=== PATIENT | female | born 1960 | race Caucasian/White ===

== ENCOUNTER 2024-02-01 08:34 | Outpatient (OUT) | payer BC, SELFPAY ==
--- NOTE | 2024-02-01 08:46 | MM_ITS ---
Patient Name: ANGELIC TERRELL MR#: [id number] : 1960 Exam Date: 02/01/2024 Ordering Doctor: DR Fahad San . RADIOLOGY REPORT PROCEDURE: MM TOMOSYNTHESIS SCREENING BI COMPARISON: MG MAMM SCREEN 3D YASSINE CAD, 11/27/2021. MG MAMM SCREEN 3D YASSINE CAD, 10/24/2020. MG MAMM SCREEN 3D YASSINE CAD, 03/02/2019. MG MAMM SCREEN 3D YASSINE CAD, 03/01/2018. INDICATIONS: Screening Calculator Name NCI Breast Cancer Risk Assessment Tool 5 Year Breast Cancer Risk Not Reported. Lifetime Breast Cancer Risk Not Reported. Personal Breast Cancer No Personal Ovarian Cancer No Treatments None Family Cancers None LOCATION: [facility] BREAST COMPOSITION: There are scattered areas of fibroglandular density. FINDINGS: DIAGNOSTIC CATEGORY 2--BENIGN FINDING: RIGHT BREAST: No significant suspicious finding. Stable skin surface lesion/mole anterior upper-outer quadrant. No significant change has occurred. LEFT BREAST: No significant suspicious finding. No significant change has occurred. RECOMMENDATIONS: ROUTINE MAMMOGRAM AND CLINICAL EVALUATION IN 12 MONTHS. PLEASE NOTE: A NORMAL MAMMOGRAM DOES NOT EXCLUDE THE POSSIBILITY OF BREAST CANCER. A CLINICALLY SUSPICIOUS PALPABLE LUMP SHOULD BE BIOPSIED. Dictated by: Regulo Sales M.D. on 02/02/2024 at 15:01 Approved by: Regulo Sales M.D. on 02/02/2024 at 15:09
[2024-02-01 09:16] LABS: Basophils Percent Auto 0.4 % (0.2-2.0); Eosinophils Absolute Auto 0.1 10^3/uL (0.0-0.7); Eosinophils Percent Auto 2.4 % (0.9-7.0); Hematocrit 40.1 % (36.0-48.0); Hemoglobin 13.2 g/dL (12.0-16.0); Immature Granulocytes Abs Auto 0.01 10^3/uL (0.00-0.03); Immature Granulocytes Pct Auto 0.2 % (0.0-0.5); Lymphocytes Absolute Auto 1.7 10^3/uL (1.2-3.8); Lymphocytes Percent Auto 33.3 % (20.5-60.0); Mean Corpuscular HGB Conc 32.9 g/dL (29.9-35.2); Mean Corpuscular Hemoglobin 31.2 pg (26.7-34.0); Mean Corpuscular Volume 94.8 fL (81.0-99.0); Mean Platelet Volume 8.8 fL (9.5-13.5); Monocytes Absolute Auto 0.4 10^3/uL (0.3-0.8); Monocytes Percent Auto 8.5 % (1.7-12.0); Neutrophils Absolute Auto 2.7 10^3/uL (1.4-6.5); Neutrophils Percent Auto 55.2 % (43.0-75.0); Platelet Count 271 10^3/uL (150-450); Red Blood Count 4.23 10^6/uL (4.20-5.40); Red Cell Distribution Width 12.9 % (11.0-15.0)
[2024-02-01 09:36] LABS: Estimated Average Glucose 120 mg/dL; Glycohemoglobin A1C 5.8 % (4.5-6.2)
[2024-02-01 10:10] LABS: Alanine Aminotransferase 42 U/L (14-59); Albumin Globulin Ratio 0.9; Albumin Level 3.8 g/dL (3.4-5.0); Alkaline Phosphatase 81 U/L (46-116); Anion Gap 7.2; Aspartate Amino Transferase 21 U/L (15-37); BUN Creatinine Ratio 31.5; Bilirubin Direct 0.1 mg/dL (0.0-0.2); Bilirubin Total 0.5 mg/dL (0.2-1.0); Calcium 8.9 mg/dL (8.5-10.1); Carbon Dioxide 30.2 mmol/L (21.0-32.0); Chloride 102 mmol/L (98-107); Chol HDL Ratio 2.8; Cholesterol 208 mg/dL (<=200); Estimated GFR (African America >60 (>=60); Estimated GFR (Non-African Ame >60 (>=60); Globulin 4.2 g/dL; Glucose 121 mg/dL (74-106); HDL Cholesterol 75 mg/dL (40-60); Potassium 4.4 mmol/L (3.5-5.1); Sodium 135 mmol/L (136-145); Thyroid Stimulating Hormone 2.281 uIU/mL (0.358-3.740); Triglycerides 68 mg/dL (<=150); VLDL CHOLESTEROL 13.6 mg/dL
== END 2024-02-01 08:35 | disposition home or self-care (01) ==
PROVIDERS: PCP Family Medicine; Visit Provider Family Medicine
DX: Z00.00 Encounter for general adult medical examination without abnormal findings (principal); Z12.31 Encounter for screening mammogram for malignant neoplasm of breast
CPT/HCPCS: 36415; 77063; 77067; 80048; 80061; 80076; 82306; 83036; 84443; 85025

== ENCOUNTER 2025-02-28 13:10 | Outpatient (OUT) | payer BC, SELFPAY ==
--- OUTSIDE RECORDS SUMMARY | 2025-02-28 13:13 | XMS_ITS | Clinical Summary ---
Author Organization [facility] Healthcare Address [address] [place] [address] Care Team Providers Care [employer] Seal Name Role Phone Fahad San MD Primary Care Provider [phone] Allergies No known active allergies Medications MedicationSigDispense QuantityRefillsLast FilledStart DateEnd DateStatus atenolol (Tenormin) 50 MG tablet Indications:Essential hypertension, benignTake 1 tablet (50 mg) by mouth Daily 90 tablet 312415Active meloxicam (Mobic) 15 MG tablet Indications:Chronic neck painTake 1 tablet (15 mg) by mouth Daily 30 tablet 5045Active cholecalciferol (Vitamin D-3) 50 MCG (2000 UT) tablet Indications:Vitamin D deficiencyTake 1 tablet (50 mcg) by mouth Daily 30 tablet 5Active dilTIAZem CD (Cardizem CD) 180 MG 24 hr capsule Indications:Essential hypertension, benignTake 1 capsule (180 mg) by mouth Daily 90 capsule 3065Active cetirizine (ZyrTEC) 10 MG tablet Take 10 mg by mouth DailyActive pantoprazole (Protonix) 40 MG EC tablet Indications:GERD without esophagitisTake 1 tablet (40 mg) by mouth in the morning. Take before meals. Do not crush, chew, or split. 30 tablet 505Active Active Problems ProblemNoted DateDiagnosed DateClass 2 severe obesity due to excess calories with serious comorbidity and body mass index (BMI) of36.0 to 36.9 in adult 05/16/2024 Assessment & Plan (05/16/2024 9:49 AM EST): Weight down 9 pounds in past year. GERD without chfywdgfzjy50/07/2025 Assessment & Plan (11/14/2024 3:31 PM EDT): Symptoms worse and try protonix. Assessment & Plan (05/16/2024 9:49 AM EST): Symptoms tolerable with nexium and continue. If worsens will need EGD and or UGI. Lwyziefypen97/24/2024Essential hypertension, ktzdsx0810/19/2023 Assessment & Plan (11/14/2024 3:31 PM EDT): BP controlled and monitor PRN. Assessment & Plan (05/16/2024 9:49 AM EST): BP okay and monitor PRN. Assessment & Plan (10/19/2023 3:14 PM EDT): BP okay today and monitor PRN. Chronic neck pain10/19/20232821Dkjnnrczleci22/11/2024rimary osteoarthritis of both hands10/19/2023 Assessment & Plan (11/14/2024 3:31 PM EDT): Pain and stiffness stable and continue mobic. Assessment & Plan (10/19/2023 3:14 PM EDT): Pain and stiffness stable and continue mobic. Allergic rhinitis due to jezpoi0010/19/2023 Assessment & Plan (11/14/2024 3:31 PM EDT): Symptoms controlled with medication and continue. Assessment & Plan (10/19/2023 3:13 PM EDT): Symptoms controlled with medication and continue. Vitamin D ypqvzhcevw47/11/2024nnual physical exam10/19/2023 Assessment & Plan (05/16/2024 9:48 AM EST): Reviewed labs. Due for cologuard and ordered. Discussed proper diet and regular aerobic exercise. Need aerobic exercise 5-6 days a week for 30 minutes at a time. Smaller portions and limit total calories. Tetanus every 10 years. Advised not to smoke. Resolved Problems ProblemNoted DateDiagnosed DateResolved DateChronic kidney disease, stage III (moderate) Social History Tobacco UseTypesPacks/DayYears UsedDateSmoking Tobacco: NeverSmokeless Tobacco: Never Tobacco Cessation:Counseling Given: Not Answered Social Connection and Isolation PanelAnswerDate RecordedIn a typical week, how many times do you talk on the phone with family, friends, or neighbors?Three times a week10/12/2023How often do you get together with friends or relatives? Three times a week10/12/2023How often do you attend scientology or yarsani services?Patient ohfnqhxn44/04/2024o you belong to any clubs or organizations such as scientology groups, unions, fraternal or athletic groups, or school groups? Yes10/12/2023How often do you attend meetings of the clubs or organizations you belong to?More than 4 times per year10/12/2023re you , , , , never , or living with a partner?Miekvkv5610/12/2023 AUDIT-CAnswerDate RecordedQ1: How often do you have a drink containing alcohol? Patient qopgttye91/04/2024Q2: How many drinks containing alcohol do you have on a typical day when you are drinking?Patient frqbzrxo33/04/2024Frequency of Binge DrinkingNot on file10/12/2023Overall Financial Resource Strain (CARDIA)Answer Date RecordedHow hard is it for you to pay for the very basics like food, housing, medical care, and heating?Patient ibcwspvq08/04/2024[facility] [place] [facility] - Occupational Stress QuestionnaireAnswerDate RecordedDo you feel stress - tense, restless, nervous, or anxious, or unable to sleep at night because yourmind is troubled all the time - these days?Not at all 10/12/2023Exercise Vital SignAnswerDate RecordedOn average, how many days per week do you engage in moderate to strenuous exercise (like a brisk walk)?3 days 10/12/2023On average, how many minutes do you engage in exercise at this level? 30 min10/12/2023Hunger Vital SignAnswerDate RecordedWithin the past 12 months, you worried that your food would run out before you got the money to buymore. Patient xekkrfkw08/04/2024Within the past 12 months, the food you bought just didn't last and you didn't have money to get more.Patient bolnekhk80/04/2024 PRAPARE - TransportationAnswerDate RecordedIn the past 12 months, has lack of transportation kept you from medical appointments or from getting medications? Patient nezdtrab10/04/2024In the past 12 months, has lack of transportation kept you from meetings, work, or from getting things needed for daily living?Patient /04/2024Housing Stability Vital SignAnswerDate RecordedIn the last 12 months, was there a time when you were not able to pay the mortgage or rent on time?Patient lrzsspki36/04/2024Number of Times Moved in the Last YearNot on file 10/12/2023Homeless in the Last YearNot on file10/12/2023CommentsUnknown Sex and Gender InformationValueDate RecordedSex Assigned at BirthNot on file Legal FucRlmvgo25/20/2023 4:59 PM ESTGender IdentityNot on fileSexual OrientationNot on file Last Filed Vital Signs Vital SignReadingTime TakenCommentsBlood Skhpfthy369/8411/14/2024 2:57 PM EDT Rvnux818411/14/2024 2:57 PM YCTCqwtezcnlvy59.2 ??C (97.1 ??F)11/14/2024 2:57 PM EDTRespiratory Lfdu014211/14/2024 2:57 PM EDTOxygen Lbklddjcjy27%11/14/2024 2:57 PM EDTInhaled Oxygen Concentration--Blkgpr21.7 kg (211 lb)11/14/2024 2:57 PM EDT Ycraii336 cm (5' 3 )11/14/2024 2:57 PM EDTBody Mass Index37.38011/14/2024 2:57 PM EDT Plan of Treatment Health MaintenanceDue DateLast DoneCommentsCT Flunqsdplyet81/12/1961olonoscopy 1960FIT1960FOBT1960 6234Tbzmxcmafwkcm39/12/1961Pap Smear1981 Cervical Cancer Yvfktrlle11/12/1991HPV/Yltpvb5007/19/1990Influenza Vaccine (#1) 01/08/20258590Jjjuoghfl80/25/443092/, 03/02/2019, 03/01/2018, Additional history existsColorectal Cancer Imeespmwh99/04/2028FIT-DNA8006/13/2024, 05/06/2021 Procedures Procedure NamePriorityDate/TimeAssociated DiagnosisCommentsLAB COLOGUARD?? COLON CANCER KQLYJDQdfvvxl74/04/2025 9:12 AM EST Colon cancer screening MM TOMOSYNTHESIS SCREENING BI02/02/2024 3:10 PM EDT from Last 3 Months or Most Recently Relevant to Health Maintenance Results * Cologuard?? colon cancer screening (06/13/2024 9:12 AM EST)ComponentValueRef RangeTest MethodAnalysis TimePerformed AtPathologist SignatureNONINV COLON CA DNA+OCC BLD SCRN STL-THFVqlbexhtMbxjkjls76/12/2025 1:20 AM [employer] (CLIA #:[id number])Comment: NEGATIVE TEST RESULT. A negative Cologuard result indicates a low likelihood that a colorectal cancer (CRC) or advanced adenoma (adenomatous polyps with more advanced pre-malignant features) ??is present. The chance that a person with a negative Cologuard test has a colorectal cancer is less than 1in 1500 (negative predictive value >99.9%) or has an advanced adenoma is less than 5.3% (negative predictive value 94.7%). These data are based on a prospective cross-sectional study of 10,000individuals at average risk for colorectal cancer who were screened with both Cologuard and colonoscopy. (Bella Hobson al, N Engl J Med 2014;370(14):9106-9006) The normal value (reference range) for this assay is negative. COLOGUARD RE-SCREENING RECOMMENDATION: Periodic colorectal cancer screening is an important part ofpreventive healthcare for asymptomatic individuals at average risk for colorectal cancer. ??Following a negative Cologuard result, the [place] Cancer Society and U.S. Multi-Society Task Force screening guidelines recommend a Cologuard re-screening interval of 3 years. References: [place] [employer] Guideline for Colorectal Cancer Screening: https://www.cancer.or g/cancer/qptao-cxlqdx-qybhzw/avcbtxkgk-duhbatiug-miwcdwj/acs-recommendations.htm emilio.; Soto TEMPLE, Reji BORRERO, Albino MCDONALD, Colorectal Cancer Screening: Recommendations for Physicians and Patients from the U.S. Multi-Society Task Force on Colorectal Cancer Screening , Am J Gastroenterology 2017; 112:4142-7303. TEST DESCRIPTION: Composite algorithmic analysis of stool DNA-biomarkers with hemoglobin immunoassay. ?? Quantitative values of individual biomarkers are not reportable and are not associated with individual biomarker result reference ranges. Cologuard is intended for colorectal cancer screening ofadults of either sex, 45 years or older, who are at average-risk for colorectal cancer (CRC). Cologuard has been approved for use by the U.S. FDA. The performance of Cologuard was established in a cross sectional study of average-risk adults aged 50-84. Cologuard performance in patients ages 45 to 49 years was estimated by sub-group analysis of near-age groups. Colonoscopies performed for a positive result may find as the most clinically significant lesion: colorectal cancer [4.0%], advanced adenoma (including sessile serrated polyps greater than or equal to 1cm diameter) [20%] or non- advanced adenoma [31%]; or no colorectal neoplasia [45%]. These estimates are derived from a prospective cross-sectional screening study of 10,000 individuals at average risk for colorectal cancer who were screened with both Cologuard and colonoscopy. (Bella Hobson al, N Engl J Med 2014;370(14):7870-5845.) Cologuard may produce a false negative or false positive result (no colorectal cancer or precancerous polyp present at colonoscopy follow up). A negative Cologuard test result does not guarantee the absence of CRC or advanced adenoma (pre-cancer). The current Cologuard screening interval is every 3 years. ([place] [employer] Society and U.S. Multi-Society Task Force). Cologuard performance data in a 10,000 patient pivotal study using colonoscopy as the reference method can be accessed at the following location: www.Dime.LiquidPlanner/results. Additional description of the Cologuard test process, warnings and precautions can be found at www.colPicatchard.com. Specimen (Source)Anatomical Location / LateralityCollection Method / Volume Collection TimeReceived TimeStool specimen (specimen)06/13/2024 9:12 AM EST 06/14/2024 2:15 PM EST Narrative Authorizing ProviderResult TypeResult StatusMarc Mena [facility] ORDERABLESFinal ResultPerforming OrganizationAddressCity/State/ZIP CodePhone Number [employer] (CLIA #:[id number]) [place] [address], * MM TOMOSYNTHESIS SCREENING BI (02/02/2024 3:10 PM EDT)Anatomical Region LateralityModalityOtherSpecimen (Source)Anatomical Location / Laterality Collection Method / VolumeCollection TimeReceived Time02/02/2024 3:10 PM EDT Narrative 02/02/2024 3:10 PM EDT [facility] ?[address] ? [place] [address] ? Mammography Report ? Signed ? Patient: XANDER,LYRIC ? MR#: [id number] ?? : 1960 ?Acct:[id number] ?? Age/Sex: 63 / F ?ADM Date: 02/01/24 ?? Loc: MAMMO ? Attending Dr: Fahad San M.D. ? Ordering Physician: Fahad San M.D. ?Results: ? Date of Service: 02/01/24 ?Follow Up: ? Procedure(s): MM tomosynthesis screening BI ?? Accession Number(s): [id number] ? cc: Fahad San M.D. ? Patient Name: ? LYRIC TERRELL ? MR#: [id number] ? : 1960 ? Exam Date: 02/01/2024 ?? Ordering Doctor: DR Fahad San . ? RADIOLOGY REPORT ? PROCEDURE: ? MM TOMOSYNTHESIS SCREENING BI ? COMPARISON: ? MG MAMM SCREEN 3D YASSINE CAD, 11/27/2021. ??MG MAMM SCREEN 3D YASSINE ?? CAD, 10/24/2020. ??MG MAMM SCREEN 3D YASSINE CAD, 03/02/2019. ??MG MAMM SCREEN 3D YASSINE ?? CAD, 03/01/2018. ? INDICATIONS: ? Screening ? Calculator Name ? NCI Breast Cancer Risk Assessment Tool ?? 5 Year Breast Cancer Risk ? Not Reported. ?? Lifetime Breast Cancer Risk ? Not Reported. ?? Personal Breast Cancer ?No ?? Personal Ovarian Cancer ? No ?? Treatments ? None ?? Family Cancers ? None ? LOCATION: ? [facility] ? BREAST COMPOSITION: ? There are scattered areas of fibroglandular density. ? FINDINGS: ? DIAGNOSTIC CATEGORY 2--BENIGN FINDING: ? RIGHT BREAST: ??No significant suspicious finding. ??Stable skin surface ?? lesion/mole anterior upper-outer quadrant. ??No significant change has ?? occurred. ? LEFT BREAST: ??No significant suspicious finding. ??No significant change has ?? occurred. ? RECOMMENDATIONS: ? ROUTINE MAMMOGRAM AND CLINICAL EVALUATION IN 12 MONTHS. ? PLEASE NOTE: ??A NORMAL MAMMOGRAM DOES NOT EXCLUDE THE POSSIBILITY OF BREAST ?? CANCER. ??A CLINICALLY SUSPICIOUS PALPABLE LUMP SHOULD BE BIOPSIED. ? Dictated by: Regulo Sales M.D. on 02/02/2024 at 15:01 ? Approved by: Regulo Sales M.D. on 02/02/2024 at 15:09 ? Dictated By: ?Regulo Sales M.D. ? Signed By: ?02/02/241509 ? DD/ 09 ? TD/TT: ? International Marketing Specialist: Procedure Note Radiology, Radiologist, MD - 02/02/2024 [facility] [place] [id number] Mammography Report Signed Patient: LYRIC TERRELLMR#: [id number] : 1960cct:[id number] Age/Sex: 63 / FADM Date: 02/01/24 Loc: MAMMO Attending Dr: Fahad San M.D. Ordering Physician: Fahad San M.D.Results: Date of Service: 02/01/24Follow Up: Procedure(s): MM tomosynthesis screening BI Accession Number(s): [id number] cc: Fahad San M.D. Patient Name: LYRIC TERRELL MR#: [id number] : 1960 Exam Date: 02/01/2024 Ordering Doctor: DR Fahad San . RADIOLOGY REPORT PROCEDURE: MM TOMOSYNTHESIS SCREENING BI COMPARISON: MG MAMM SCREEN 3D YASSINE CAD, 11/27/2021. MG MAMM SCREEN 3DBIL CAD, 10/24/2020. MG MAMM SCREEN 3D YASSINE CAD, 03/02/2019. MG MAMM SCREEN 3DBIL CAD, 03/01/2018. INDICATIONS: Screening Calculator Name NCI Breast Cancer Risk Assessment Tool 5 Year Breast Cancer Risk Not Reported. Lifetime Breast Cancer Risk Not Reported. Personal Breast Cancer No Personal Ovarian Cancer No Treatments None Family Cancers None LOCATION: [facility] BREAST COMPOSITION: There are scattered areas of fibroglandulardensity. FINDINGS: DIAGNOSTIC CATEGORY 2--BENIGN FINDING: RIGHT BREAST: No significant suspicious finding. Stable skin surface lesion/mole anterior upper-outer quadrant. No significant change has occurred. LEFT BREAST: No significant suspicious finding. No significant changehas occurred. RECOMMENDATIONS: ROUTINE MAMMOGRAM AND CLINICAL EVALUATION IN 12 MONTHS. PLEASE NOTE: A NORMAL MAMMOGRAM DOES NOT EXCLUDE THE POSSIBILITY OFBREAST CANCER. A CLINICALLY SUSPICIOUS PALPABLE LUMP SHOULD BE BIOPSIED. Dictated by: Regulo Sales M.D. on 02/02/2024 at 15:01 Approved by: Regulo Sales M.D. on 02/02/2024 at 15:09 Dictated By: Regulo Sales M.D. Signed By:02/02/240 DD/ 09 TD/TT: International Marketing Specialist: Authorizing ProviderResult TypeResult StatusMarc Naderer MDCLINISYNC IMAGING Final Result from Last 3 Months or Most Recently Relevant to Health Maintenance Insurance Care Teams Team MemberRelationshipSpecialtyStart DateEnd Date Fahad San MD PCP - GeneralFamily Medicine10/19/23
--- OUTSIDE RECORDS SUMMARY | 2025-02-28 13:13 | XMS_ITS | Clinical Summary ---
Author Organization [facility] tem Address [id number] [address] [place] [address] Care Team Providers Care Hot Man Name Role Phone Fahad San MD Primary Care Provider [phone] Family History Medical HistoryRelationNameCommentsBreast cancerCousinRelationNameStatusComments Cousin Social History Tobacco UseTypesPacks/DayYears UsedDateSmoking Tobacco: Never AssessedChildcare AnswerDate WgpqstbrThwvjrakeJuagtfc16/12/2019EmploymentAnswerDate Recorded VfytocwjzbOiafutz67/12/2019Purpose - LifeAnswerDate RecordedPurpose and direction in tgebFpauicg80/11/2021CommentsNoSex and Gender Information ValueDate RecordedSex Assigned at BirthNot on fileLegal RdbWkutmn85/06/2015 11:30 AM EDTGender IdentityNot on fileSexual OrientationNot on file Last Filed Vital Signs Vital SignReadingTime TakenCommentsBlood Pressure--Pulse--Temperature-- Respiratory Rate--Oxygen Saturation--Inhaled Oxygen Concentration--Bmglmv44.5 kg (215 lb)03/02/2019 8:08 AM YIXLnwqmc468.6 cm (5' 4 )03/02/2019 8:08 AM EDTBody Mass Index36.91 8:08 AM EDT Plan of Treatment Health MaintenanceDue DateLast DoneCommentsDepression Hqsvhdwin89/12/1973Tobacco Pnmunesiz02/12/1973Adult BMI Htjschxvj52/12/1979DTaP,Tdap and Td Vaccines (1 - Tdap)07/20/1979Pap Smear1981Zoster (Shingles) Vaccine (1 of 2)2010 Influenza Surpvaq0301/08/2025 Medical Devices Not on file Insurance Care Teams Team MemberRelationshipSpecialtyStart DateEnd Date Fahad San MD PCP - GeneralFamily Cldwyvwm23/24/19
--- NOTE | 2025-02-28 13:18 | MM_ITS ---
Patient Name: ANGELIC TERRELL MR#: [id number] : 1960 Exam Date: 02/28/2025 Ordering Doctor: DR SAÚL FRANCO D.O. RADIOLOGY REPORT PROCEDURE: MM TOMOSYNTHESIS SCREENING BI COMPARISON: MM TOMOSYNTHESIS SCREENING BI, 02/01/2024. MG MAMM SCREEN 3D YASSINE CAD, 11/27/2021. MG MAMM SCREEN 3D YASSINE CAD, 10/24/2020. MG MAMM SCREEN 3D YASSINE CAD, 03/01/2018. INDICATIONS: Screening Calculator Name NCI Breast Cancer Risk Assessment Tool 5 Year Breast Cancer Risk Not Reported. Lifetime Breast Cancer Risk Not Reported. Personal Breast Cancer No Personal Ovarian Cancer No Treatments None Family Cancers None LOCATION: [facility] BREAST COMPOSITION: There are scattered areas of fibroglandular density. FINDINGS: RIGHT BREAST: No significant suspicious finding. Similar focal asymmetries are present. Benign-appearing lymph nodes are noted along the chest wall. LEFT BREAST: No significant suspicious finding. Similar focal asymmetries are present. Benign-appearing lymph nodes are noted along the chest wall. DIAGNOSTIC CATEGORY 2--BENIGN FINDING. NO CHANGE FROM COMPARISON. RECOMMENDATIONS: ROUTINE MAMMOGRAM AND CLINICAL EVALUATION IN 12 MONTHS. Dictated by: Joel Santillan MD on 02/28/2025 at 16:02 Approved by: Joel Santillan MD on 02/28/2025 at 16:11
--- OUTSIDE RECORDS SUMMARY | 2025-02-28 13:31 | XMS_ITS | CCD ---
Author Organization [facility] Care Team Providers Care Wildlife Biostation Research Ecologist Name Role Phone DR FAHAD OLIVIER Primary Care Unavailable SOY, DR FAHAD Cooper Consulting Unavailable SOY, DR FAHAD Cooper Attending Unavailable SOY, DR FAHAD Cooper Admitting Unavailable SOY, DR FAHAD Cooper Primary Care Unavailable ESPANOLA, DR MENDOZA Otero Consulting Unavailable SOY, DR FAHAD Cooper Attending Unavailable SOY, DR FAHAD Cooper Admitting Unavailable SOY, DR FAHAD Cooper Consulting Unavailable Fahad Olivier MD Primary Care Provider Fahad Olivier MD Unavailable FAHAD OLIVIER Attending Unavailable SOY, FAHAD Attending Unavailable Medications Current Medications MedicationDrug Class(es)DatesSig (Normalized)Sig (Original)atenolol 50 mg oral tablet (9 sources)beta-Adrenergic BlockerStart: 04-19-2024 End: 17-34-0566afzi 1 tablet by mouth once dailyatenolol (Tenormin) 50 MG tablet Indications: Essential hypertension, benign Take 1 tablet (50 mg) by mouth Daily 90 tablet 3 04/19/2024 04/19/2025 ActiveStart: 33-43-2664hewsstel (Tenormin) 50 MG tablet 10/17/2023 Activecetirizine hydrochloride 10 mg oral tablet (2 sources)Histamine-1 Receptor Antagonisttake 1 tablet by mouth once daily cetirizine (ZyrTEC) 10 MG tablet Take 10 mg by mouth Daily Activecholecalciferol 0.05 mg oral tablet (9 sources)Vitamin DStart: 16-82-5992gtsa 1 tablet by mouth once daily cholecalciferol (Vitamin D-3) 50 MCG (1999 UT) tablet Indications: Vitamin D deficiency Take 1 tablet (50 mcg) by mouth Daily 30 tablet 5 10/05/2024 Active Start: 79-52-3948zxsb 1 tablet by mouth once dailycholecalciferol (Vitamin D-3) 50 MCG (1999) tablet Indications: Vitamin D deficiency Take 1 tablet (50 mcg) by mouth Daily 30 tablet 5 03/06/2024 ActiveStart: 20-62-4804olvc 1 tablet by mouth once dailycholecalciferol (Vitamin D-3) 50 MCG (1999 UT) tablet Indications: Vitamin D deficiency Take 1 tablet (50 mcg) by mouth Daily 30 tablet 5 08/25/2023 Olorbg25 hr dilTIAZem hydrochloride 180 mg extended release oral capsule (10 sources)Calcium Channel BlockerStart: 10-23-2024 End: 69-26-7271wozq 1 capsule by mouth once dailydilTIAZem CD (Cardizem CD) 180 MG 24 hr capsule Indications: Essential hypertension, benign Take 1 capsule (180 mg) by mouth Daily 90 capsule 3 10/31/2024 ActiveStart: 10-19-2023 End: 56-50-4080ngvq 1 capsule by mouth once dailydilTIAZem CD (Cardizem CD) 180 MG 24 hr capsule Indications: Essential hypertension, benign (CMS/HCC) Take 1 capsule (180 mg) by mouth Daily 30 capsule 11 10/19/2023 10/18/2024 Active meloxicam 15 mg oral tablet (10 sources)Nonsteroidal Anti-inflammatory DrugStart: 04-03-2024 End: 00-37-9627kvur 1 tablet by mouth once dailymeloxicam (Mobic) 15 MG tablet Indications: Chronic neck pain Take 1 tablet (15 mg) by mouth Daily 30 tablet 5 08/28/2024 ActiveStart: 59-89-2952wczjtoarz (Mobic) 15 MG tablet 09/26/2023 Activepantoprazole 40 mg delayed release oral tablet (2 sources)Proton Pump InhibitorStart: 53-47-4543xnxm 1 tablet by mouth before mealtimepantoprazole (Protonix) 40 MG EC tablet Indications: GERD without esophagitis Take 1 tablet (40 mg)by mouth in the morning. Take before meals. Do not crush, chew, or split. 30 tablet 5 11/14/2024 Active Completed/Discontinued Medications MedicationDrug Class(es)DatesSig (Normalized)Sig (Original)esomeprazole 20 mg delayed release oral capsule (7 sources)Proton Pump Inhibitor End: 79-60-3574wgit 1 capsule by mouth before mealtimeesomeprazole (NexIUM) [address] capsule Take 20 mg by mouth in the morning. Take before meals. Do not open capsule.. 11/14/2024 Discontinuedloratadine 10 mg oral tablet (9 sources) End: 29-23-0044pzbd 1 tablet by mouth once dailyloratadine (Claritin) 10 MG tablet Take 10 mg by mouth Daily 11/14/2024 Discontinued Problems Active Problems Problem ClassificationProblemDateDocumented DateEpisodic/ChronicChronic kidney disease (9 sources)Chronic kidney disease stage 3; Translations: [Chronic kidney disease, stage III (moderate) ([facility])]Onset: 10-19-2023 Resolved: 303548-89-8772XsydwquZamxhpppj of lipid metabolism (9 sources)Dyslipidemia; Translations: [Hyperlipidemia, unspecified]Onset: 129071-46-9644HbxjnvxYvfkucatqd disorders (11 sources)Gastroesophageal reflux disease without esophagitis; Translations: [Gastro-esophageal reflux disease without esophagitis]Onset: 05-16-2024 67-43-4286FqiuzzeFbbwxnubm hypertension (14 sources)Benign essential hypertension; Translations: [Essential (primary) hypertension]Onset: 235473-07-9177TfpxfbkKxgjutzqujp deficiencies (10 sources)Vitamin D deficiency, unspecified; Translations: [Vitamin D deficiency]Onset: 896268-51-7133EoggertMeozmkyhppemwq (11 sources)Osteoarthritis of joint of bilateral hands; Translations: [Primary osteoarthritis, right hand]Onset: 587917-22-0430EraldwbTwyow nutritional; endocrine; and metabolic disorders (9 sources)Severe obesity; Translations: [Class 2 severe obesity due to excess calories with serious comorbidity and body mass index (BMI) of 36.0 to 36.9 in adult ([facility])]Onset: 301365-62-9507OlyjuzyIlziz screening for suspected conditions (not mental disorders or infectious disease) (6 sources)Encounter for screening mammogram for malignant neoplasm of breast; Translations: [Patient encounter status]Onset: 26-29-4741VarwqrxkHlwkx upper respiratory disease (11 sources)Allergic rhinitis due to pollen; Translations: [Allergic rhinitis due to pollen]Onset: hronic Past or Other Problems Problem ClassificationProblemDateDocumented DateEpisodic/ChronicDiabetes mellitus without complication (8 sources)Prediabetes; Translations: [Prediabetes]Onset: EpisodicSpondylosis; intervertebral disc disorders; other back problems (10 sources)Chronic neck pain; Translations: [Cervicalgia]Onset: 10-19-2023 98-34-7338Pfigkops Results Test NameValueInterpretationReference RangeFacilityALL CBC WITH AUTO DIFFon [id number] ABSOLUTE AUTO0.0NOVA HealthcareBasophils/100 WBC (Bld)0.4 % 0.2 - 2.0 %NOMSamaritan HospitalEosinophils/100 WBC (Bld)2.4 %0.9 - 7.0 %[facility] CenterErythrocyte distribution width (RBC) [Ratio]12.9 %11.0 - 15.0 %[facility] CenterHematocrit (Bld) [Volume fraction]40.1 %36.0 - 48.0 %[facility] Hemoglobin (Bld) [Mass/Vol]13.2 g/dL12.0 - 16.0 g/dLSt. Louis VA Medical CenterIMMATURE GRANULOCYTES ABS AUTO0.01NOFreeman Neosho HospitalImmature granulocytes/100 WBC (Bld)0.2 % 0.0 - 0.5 %[facility] CenterInterpretation and review of laboratory results AbnormalNOFreeman Neosho HospitalLYMPHOCYTES ABSOLUTE AUTO1.7NOMS [facility] Lymphocytes/100 WBC (Bld)33.3 %20.5 - 60.0 %[facility] HospitalH (RBC) [Entitic mass]31.2 pg26.7 - 34.0 pgHarry S. Truman Memorial Veterans' HospitalHC (RBC) [Mass/Vol]32.9 g/dL29.9 - 35.2 g/dLHarry S. Truman Memorial Veterans' HospitalV (RBC) [Entitic vol]94.8 fL81.0 - 99.0 fLNOFreeman Neosho HospitalMONOCYTES ABSOLUTE AUTO0.4NOMS HealthcareMonocytes/100 WBC (Bld)8.5 % 1.7 - 12.0 %[facility] CenterNEUTROPHILS ABSOLUTE AUTO2.7NOFreeman Neosho Hospital Neutrophils/100 WBC (Bld)55.2 %43.0 - 75.0 %NOMS HealthcarePlatelet mean volume (Bld) [Entitic vol]8.8 fLLow9.5 - 13.5 fLNOMS HealthcareTBH EO #0.1NOMS [facility] HospitalTB [id number] [facility] RBC4.23[facility] WBC5.0NOMS HealthcareCLINISYNCNOMS [facility] HospitalCBC AUTO DIFFon [id number] #0.0 103/ul Normal0.0-0.1The [facility] HospitalComment on above:Performed By: #### CBC #### [facility] [address] [address] [address] Seamus CoombsBasophils/100 WBC (Bld)0.6 %Normal0.2-2.0[facility] Comment on above:Performed By: #### CBC #### [facility] [address] [address] [address] Seamus Vang #0.1 103/ulNormal0.0-0.7The [facility] HospitalComment on above: Performed By: #### CBC #### [facility] [address] [address] [address] Seamus Anneosinophils/100 WBC (Bld)1.8 %Normal0.9-7.0[facility] Comment on above:Performed By: #### CBC #### [facility] [address] [address] [address] Seamus Annerythrocyte distribution width (RBC) [Ratio]12.9 %Caxbbx76.0-15.0 [facility] [facility]S HospitalComment on above:Performed By: #### CBC #### [facility] [address] [address] [address] Seamus CoombsHematocrit (Bld) [Volume fraction]37.6 %Ghbwxv09.0-48.0St. [facility]'S HospitalComment on above:Performed By: #### CBC #### [facility] [address] [address] [address] Seamus CoombsHemoglobin (Bld) [Mass/Vol]12.5 g/lYWrrukw79.0-16.0The [facility] HospitalComment on above:Performed By: #### CBC #### [facility] [address] [place] [address] Dr. Seamus Brown #0.01 10e3/ulNormal0.00-0.03The [facility] HospitalComment on above:Performed By: #### CBC #### [facility] [address] [place] [address] Dr. Seamus Brown %0.2 %Normal0.0-0.5The [facility] HospitalComment on above: Performed By: #### CBC #### [facility] [address] [place] [address] Dr. Seamus Junior #1.8 103/ulNormal1.2-3.8The [facility] HospitalComment on above:Performed By: #### CBC #### [facility] [address] [place] [address] Dr. Seamus Lobatohocytes/100 WBC (Bld)36.4 %Bihxzg08.5-60.0The [facility] HospitalComment on above:Performed By: #### CBC #### [facility] [address] [place] [address] Dr. Seamus Norman DIFF REQNONormalThe [facility] HospitalComment on above: Performed By: #### CBC #### [facility] [address] [place] [address] Dr. Seamus Josue (RBC) [Entitic mass]31.2 ciOijmkr43.7-34.0The [facility] HospitalComment on above:Performed By: #### CBC #### [facility] [address] [place] [address] Dr. Seamus Josue (RBC) [Mass/Vol]33.2 g/yWZwhosm40.9-35.2The [facility] HospitalComment on above:Performed By: #### CBC #### [facility] [address] [place] [address] Dr. Seamus Josue (RBC) [Entitic vol]93.8 eVZhtvct04.0-99.0The [facility] HospitalComment on above:Performed By: #### CBC #### [facility] [address] [place] [address] Dr. Seamus Ceja #0.4 103/ulNormal0.3-0.8The [facility] HospitalComment on above:Performed By: #### CBC #### [facility] [address] [place] [address] Dr. Seamus Petersenocytes/100 WBC (Bld)7.1 %Normal1.7-12.0The [facility] Comment on above:Performed By: #### CBC #### [facility] [address] [place] [address] Dr. Seamus Hector #2.7 103/ulNormal1.4-6.5The [facility] HospitalComment on above:Performed By: #### CBC #### [facility] [address] [place] [address] Dr. Seamus Jovelutrophils/100 WBC (Bld)53.9 %Kcelzj68.0-75.0The [facility] HospitalComment on above:Performed By: #### CBC #### [facility] [address] [place] [address] Dr. Seamus Fisher mean volume (Bld) [Entitic vol]9.3 fLCritically low 9.5-13.5The [facility] HospitalComment on above:Performed By: #### CBC #### [facility] [address] [place] [address] Dr. Seamus CoombsPLT295 103/tiKnvtuk697-732Ugr [facility] HospitalComment on above: Performed By: #### CBC #### [facility] [address] [place] [address] Dr. Seamus CoombsRBC4.01 106/ulCritically low4.20-5.40The [facility] HospitalComment on above:Performed By: #### CBC #### [facility] [address] [place] [address] Dr. Seamus CoombsWBC5.1 103/ulNormal4.0-11.0The [facility] HospitalComment on above: Performed By: #### CBC #### [facility] [address] [address] [address] Seamus CoombsGLYCOHEMOGLOBIN A1Con 77-09-2160FZR RECOMMENDATIONSEE BELOWNoMercy Memorial HospitalComment on above:Result Comment: ADA RECOMMENDED LIMIT 4.0 - 6.0 ADA THERAPEUTIC TARGET < 7.0 ACTION SUGGESTED > 7.0Performed By: #### A1C #### [facility] [address] [address] [address] Seamus CoombsGlucose [Mass/Vol]126 mg/dLNoMarymount HospitalComment on above:Performed By: #### A1C #### [facility] [address] [place] [address] Dr. Seamus CoombsHbA1c (Bld) [Mass fraction]6.0 %Normal4.5-6.2The [facility] HospitalComment on above:Performed By: #### A1C #### [facility] [address] [place] [address] Dr. Seamus CoombsLIPID PROFILEon [id number]-HDL RATIO NORMSEE Peoples HospitalComment on above:Result Comment: 3.3 - 4.4 LOW RISK 4.4 - 7.1 AVERAGE RISK 7.1 - 11.0 MODERATE RISK >11.0 HIGH RISKPerformed By: #### TSH, LIVER, BMP, LIPID #### [facility] [address] [address] [address] Seamus CoombsCholesterol [Mass/Vol]180 mg/dLNormal<=200The [facility] Comment on above:Performed By: #### TSH, LIVER, BMP, LIPID #### [facility] [address] [address] [address] Seamus CoombsCholesterol in HDL [Mass/Vol]82 mg/dLCritically aykw87-76Ujb [facility] HospitalComment on above:Performed By: #### TSH, LIVER, BMP, LIPID #### [facility] [address] [address] [address] Seamus Plummeresterol in LDL [Mass/Vol]90.0 mg/dLWadsworth-Rittman HospitalComment on above:Performed By: #### TSH, LIVER, BMP, LIPID #### [facility] [address] [address] [address] Seamus Escalante.total/Cholesterol in HDL [Mass ratio]2.2 {ratio} NormalSt. Rita'S HospitalCommclaren flint on above:Performed By: #### TSH, LIVER, BMP, LIPID #### [facility] [address] [address] [address] Seamus Rockwell NORMAL> or = 60 mg/dl - LOW CARDIOVASCULAR RISK <40 mg/dl - HIGH CARDIOVASCULAR RISKWadsworth-Rittman HospitalComment on above:Performed By: #### TSH, LIVER, BMP, LIPID #### [facility] [address] [place] [address] Dr. Seamus Adame CALC NORMALSEE BELOWNoMarymount HospitalComment on above:Result Comment: <100 mg/dl OPTIMAL 100 - 129 mg/dl NEAR OR ABOVE OPTIMAL 130 - 159 mg/dl BORDERLINE HIGH 160 - 189 mg/dl HIGH >190 mg/dl VERY HIGH Performed By: #### TSH, LIVER, BMP, LIPID #### [facility] [address] [place] [address] Dr. Seamus CoombsTriglyceride [Mass/Vol]40 mg/dLNormal<=150[facility] Comment on above:Performed By: #### TSH, LIVER, BMP, LIPID #### [facility] [address] [place] [address] Dr. Seamus FernandoLDL CALC8.0 mg/dLWadsworth-Rittman HospitalCommclaren flint on above: Performed By: #### TSH, LIVER, BMP, LIPID #### [facility] [address] [place] [address] Dr. Seamus Mena PROFILEon 46-57-1733Soebjik [Mass/Vol]4.0 g/dLNormal3.4-5.0 The [facility] HospitalComment on above:Performed By: #### TSH, LIVER, BMP, LIPID #### [facility] [address] [address] [address] Seamus CoombsAlbumin/Globulin [Mass ratio]0.9 {ratio}NormalThe [facility] Hospitalment on above:Performed By: #### TSH, LIVER, BMP, LIPID #### [facility] [address] [address] [address] Seamus Henlye [Catalytic activity/Vol]80 U/XJygsjm18-937Dki [facility] HospitalComment on above:Performed By: #### TSH, LIVER, BMP, LIPID #### [facility] [address] [address] [address] Seamus Foote [Catalytic activity/Vol]49 U/DRdlxom84-09Lbv [facility] Hospitalment on above:Performed By: #### TSH, LIVER, BMP, LIPID #### [facility] [address] [address] [address] Seamus CoombsAST [Catalytic activity/Vol]23 U/OBbozjk50-43Zrd [facility] HospitalComment on above:Performed By: #### TSH, LIVER, BMP, LIPID #### [facility] [address] [address] [address] Seamus Greer, CONJUGATED0.1 mg/dLNormal0.0-0.2The [facility] Comment on above:Performed By: #### TSH, LIVER, BMP, LIPID #### [facility] [address] [address] [address] Seamus Wongirubin [Mass/Vol]0.4 mg/dLNormal0.2-1.0The [facility] Comment on above:Performed By: #### TSH, LIVER, BMP, LIPID #### [facility] [address] [address] [address] Seamus CoombsGlobulin (S) [Mass/Vol]4.4 g/dLNormalThe [facility] on above:Performed By: #### TSH, LIVER, BMP, LIPID #### [facility] [address] [address] [address] Seamus CoombsProtein [Mass/Vol]8.4 g/dLCritically high6.4-8.2The [facility] HospitalComment on above:Performed By: #### TSH, LIVER, BMP, LIPID #### [facility] [address] [address] [address] Seamus Biswas CHEM 8 (BAS METB)on 77-37-9738Wkjaz gap [Moles/Vol]8.6 mmol/LNormalThe [facility] HospitalComment on above:Performed By: #### TSH, LIVER, BMP, LIPID #### [facility] [address] [address] [address] Seamus CoombsCalcium [Mass/Vol]9.1 mg/dLNormal8.5-10.1The [facility] Comment on above:Performed By: #### TSH, LIVER, BMP, LIPID #### [facility] [address] [address] [address] Seamus CoombsChloride [Moles/Vol]103 mmol/CTyvkyg55-382Fua [facility] Comment on above:Performed By: #### TSH, LIVER, BMP, LIPID #### [facility] [address] [address] [address] Seamus CoombsCO2 [Moles/Vol]28.5 mmol/YGrcnwc89.0-32.0[facility] Comment on above:Performed By: #### TSH, LIVER, BMP, LIPID #### [facility] [address] [address] [address] Seamus CoombsCreatinine [Mass/Vol]0.89 mg/dLNormal0.55-1.02The [facility] HospitalComment on above:Performed By: #### TSH, LIVER, BMP, LIPID #### [facility] [address] [address] [address] Seamus AnneGFR-AF NORTHERN IRISH>60Normal>=60The [facility] HospitalComment on above:Performed By: #### TSH, LIVER, BMP, LIPID #### [facility] [address] [address] [address] Seamus nAneGFR-NON AF NORTHERN IRISH>60Normal>=60The [facility] HospitalComment on above:Performed By: #### TSH, LIVER, BMP, LIPID #### [facility] [address] [address] [address] Seamus CoombsGlucose [Mass/Vol]89 mg/iBCoddjp33-183YngSt. Rita'S Hospital Comment on above:Performed By: #### TSH, LIVER, BMP, LIPID #### [facility] [address] [address] [address] Seamus CoombsPotassium [Moles/Vol]4.1 mmol/LNormal3.5-5.1[facility] Comment on above:Performed By: #### TSH, LIVER, BMP, LIPID #### [facility] [address] [place] [address] Dr. Seamus CoombsSodium [Moles/Vol]136 mmol/JCemanf179-119LfcSt. Rita'S Hospital Comment on above:Performed By: #### TSH, LIVER, BMP, LIPID #### [facility] [address] [place] [address] Dr. Seamus CoombsUrea nitrogen [Mass/Vol]26.0 mg/dLCritically high7.0-18.0St. [facility]'S HospitalComment on above:Performed By: #### TSH, LIVER, BMP, LIPID #### [facility] [address] [place] [address] Dr. Seamus Abebe nitrogen/Creatinine [Mass ratio]29.2 mg/mgNormalThe [facility] HospitalComment on above:Performed By: #### TSH, LIVER, BMP, LIPID #### [facility] [address] [place] [address] Dr. Seamus Caldwell 23-52-2817XQI9.631 uIU/mLNormal0.358-3.740St. Rita'S HospitalComment on above:Performed By: #### TSH, LIVER, BMP, LIPID #### [facility] [address] [place] [address] Dr. Seamus CoombsVITAMIN D 25 OHon 62-63-8098CMO D 25-OH56.7 ng/mLNormalThe [facility] HospitalComment on above:Performed By: #### VITAD #### [facility] [address] [place], [place] [address] Dr. Seamus Madrigal RANGESSEE BELOWWadsworth-Rittman HospitalComment on above: Result Comment: <20 ng/mL Vit D deficient 20 - <30 ng/mL Vit D insufficient 30 - 100 ng/mL Vit D sufficient >100 ng/mL Potential ToxicityPerformed By: #### VITAD #### [facility] [address] [place], [place] [id number] Dr. Seamus CoombsMG MAMM SCREEN 3D YASSINE CADon [id number] MAMM SCREEN 3D YASSINE CAD Patient: LYRIC TERRELL Exam Date: 11/27/2021 : 1960 Gender:F Ordering : DR FAHAD OLIVIER . Admission #: [id number] Family : Order #: [id number] CLICK HERE TO VIEW EXAM RADIOLOGY REPORT PROCEDURE: MAMMOGRAM SCREENING 3D BILATERAL CAD COMPARISON: MG MAMM SCREEN 3D YASSINE CAD, 03/02/2019. MG MAMM SCREEN 3D YASSINE CAD, 10/24/2020. INDICATIONS: Screening for malignant neoplasm of breast Calculator Name NCI Breast Cancer Risk Assessment Tool 5 Year Breast Cancer Risk Not Reported. Lifetime Breast Cancer Risk Not Reported. Personal Breast Cancer No Personal Ovarian Cancer No Treatments None Family Cancers None LOCATION: [facility] BREAST COMPOSITION: Scattered areas fibroglandular density. FINDINGS: DIAGNOSTIC CATEGORY 2--BENIGN FINDING. NO CHANGE FROM COMPARISON. Scattered benign-appearing nodules are present. Scattered benign-appearing calcifications are present. Scattered benign-appearing lymph nodes are present. RIGHT BREAST: No significant suspicious finding. LEFT BREAST: No significant suspicious finding. RECOMMENDATIONS: ROUTINE MAMMOGRAM AND CLINICAL EVALUATION IN 12 MONTHS. PLEASE NOTE: A NORMAL MAMMOGRAM DOES NOT EXCLUDE THE POSSIBILITY OF BREAST CANCER. A CLINICALLY SUSPICIOUS PALPABLE LUMP SHOULD BE BIOPSIED. Dictated by: Mendoza Sargent MD on 11/27/2021 at 15:57 Approved by: Mendoza Sargent MD on 11/27/2021 at 16:00[facility] Vital Signs Date TimeVital SignValuePerforming PghrqawrtThbhiast41-83-4835 14:57-0400Body bxgwik759 cmFahad Olivier MD Work Phone: [phone] [place], [place] [address]Llodjjshgd78-15-3804 14:57-0400Body mass index (BMI) [Ratio]37.38 kg/m2Fahad Olivier MD Work Phone: [facility] CenterQevimslbar10-87-9641 14:57-0400Body temperature 97.11 [degF]Fahad Olivier MD Work Phone: [facility] CenterOrmujdmgii09-09-9315 14:57-0400Body gcozun92.71 kgFahad Olivier MD Work Phone: [phone] [place], [place] [address]Wcibdvrutu38-32-8860 14:57-0400Diastolic blood nbgwuivx07 mm[Hg]Fahad Olivier MD Work Phone: [phone] [place], [place] [address]Vgrdxjigwr92-23-8336 14:57-0400Heart rate63 /min Fahad Olivier MD Work Phone: [phone] [place], [place] [address]Kxemguugnr24-10-7185 14:57-0400Respiratory rate18 /minFahad Olivier MD Work Phone: [phone] [place], [place] [address]Ulxyipwbed60-04-6980 14:57-9877WmY8% (BldA) [Mass fraction]97 %Fahad Olivier MD Work Phone: [phone] [place], [place] [address]Mdvbvuvfnp47-92-4977 14:57-0400Systolic blood lzmefqcl944 mm[Hg]Fahad Olivier MD Work Phone: [facility] CenterFbskvslwng97-69-9005 09:18-0500Body mwaqzz653 cm Fahad Olivier MD Work Phone: [phone] [place], [place] [address]Srsozgkimg04-95-8400 09:18-0500Body mass index (BMI) [Ratio]36.85 kg/m2Fahad Olivier MD Work Phone: [facility] CenterRikgltvqjn13-52-1622 09:18-0500Body temperature 97.5 [degF]Fahad Olivier MD Work Phone: [facility] CenterEjjlrqfyjk32-70-0986 09:18-0500Body wvonut42.35 kgFahad Olivier MD Work Phone: [phone] [place], [place] [address]Jkxhisupuk53-05-3602 09:18-0500Diastolic blood slxhzmad13 mm[Hg]Fahad Olivier MD Work Phone: noms Bfzhnpwlms84-26-1856 09:18-0500Heart rate66 /min Fahad Olivier MD Work Phone: [facility] Armrfhfyzw44-05-8151 09:18-0500Respiratory rate20 /minFahad Olivier MD Work Phone: noFreeman Neosho HospitalNddsthpydd09-45-1921 09:18-2989BhV4% (BldA) [Mass fraction]98 %Fahad Olivier MD Work Phone: [facility] Exjppiwhyw78-97-2073 09:18-0500Systolic blood mm[Hg]Fahad Olivier MD Work Phone: [facility] Encounters Encounter DateEncounter [facility] ProviderFacilityStart: 11-14-2024 End: 91-74-7128Cgjpvg outpatient visit 25 minutesFahad Olivier MD Work Phone: [facility] FMComment on above:Essential hypertension, benign (Primary Dx); Primary osteoarthritis of both hands; GERD without esophagitis; Seasonal allergic rhinitis due to pollenStart: 11-14-2024 End: 71-54-9624ifsqeyysdwYZAB NADERERNot AvailableStart: 11-14-2024 End: 39-22-1073Lmmqnm flowsMartha Olivier MD Work Phone: [facility] FMStart: 11-14-2024 End: 47-26-2497Fxgkch flowsMartha Olivier MD Work Phone: [facility] FMStart: 10-30-2024 End: 89-38-5311OxqzfrZvyq Naderer MD Work Phone: [facility] FMComment on above:Essential hypertension, benignStart: 08-28-2024 End: 52-16-9811CojhbmDwuo Naderer MD Work Phone: [facility] FMComment on above:Chronic neck painStart: 05-16-2024 End: 97-65-0199Cpmchp flowsheetFahad Olivier MD Work Phone: [facility] FMStart: 05-16-2024 End: 64-03-7337Bntepf flowsheetFahad Olivier MD Work Phone: [facility] FMStart: 05-16-2024 End: 89-09-8199Ifdcsjw encounter procedureFahad Olivier MD Work Phone: [facility] Work Phone: Start: 05-16-2024 End: 41-86-1363Xfytqdfx preventive med est patient 40-64yrsMarc Soy FRITZ Work Phone: [facility] CWM FMComment on above:Annual physical exam (Primary Dx); Essential hypertension, benign (CMS/HCC); GERD without esophagitis; Class 2 severe obesity due to excess calories with serious comorbidity and body mass index (BMI) of36.0 to 36.9 in adult (CMS/HCC); Colon cancer screeningStart: 05-16-2024 End: 77-98-7198asoaenkzotUQYU NADERERNot AvailableStart: 02-01-2024 End: 87-30-2965Ilwdwiwiz Result EncounterFahad Olivier MD Work Phone: [facility] External Department UnsolicitedStart: 02-01-2024 End: 18-81-8744Ytxluphdd Result EncounterFahad Olivier MD Work Phone: [facility] External Department UnsolicitedStart: 10-19-2023 Patient encounter procedureFahad Olivier MD Work Phone: [facility] HealthcareStart: 12-10-5248Lbkxnasxc for general adult medical examination without abnormal findingsDR FAHAD BOWERMount Carmel Health Systemtart: 03-26-2022 End: 40-50-8098uqvyaweoguCJ FAHAD AZARRFacility:L3Epuqc: 03-26-2022 End: 88-15-5533Jxmiscpgc for general adult medical examination without abnormal findingsDR FAHAD AZARRFacility:Q1Lasny: 11-27-2021 End: 43-70-4070vrhryqnxwaRL FAHAD ECHAVARRIAacility:H1 Procedures DateProcedureProcedure DetailPerforming ClinicianStart: 94-05-0986Dosrgmqakdc Fahad Olivier MD Work Phone: Start: 10-10-7806TBF CBC WITH AUTO DIFFFahad Olivier MD Work Phone: Start: 68-26-5848BmaylrcrcyrBztk Naderer MD Work Phone: Plan of Treatment DateCare ActivityDetailAuthorStart: 91-55-2995Oslrhfwty for malignant neoplasm of colonNOMS HealthcareStart: 05-17-2025 End: 06-22-7907Valinxs encounter yzuqmvhqw63/08/2026 2:45 PM EST Office Visit [facility] [address] [place] [id number] Fahad Olivier MD [address] [place] [phone] [facility] FMStart: 74-67-2717Xbieczdcr for malignant neoplasm of breast MammogramNOMS HealthcareStart: 59-34-1618Zqleippou vaccinationNOVA Healthcare Start: 11-14-2024 End: 83-82-9371Jllwfof encounter procedureNOMS CWM FMComment on above:Arrived Start: 05-16-2024 End: 69-48-3562Fqpfuzsngfj colorectal cancer DNA and occult blood screening [Presence] in StoolCologuard colon cancer screening Lab Routine Colon cancer screening Expected: 05/16/2024 (Approximate), Expires: 05/16/2025[facility] Work Phone: Comment on above:Expected: 05/16/2024 (Approximate), Expires: 05/16/2025Start: 05-16-2024 End: 66-56-0358Amqpxwv encounter procedureNOVA CWM FMComment on above:Arrived Start: 43-77-8417Pevhnhgjs for malignant neoplasm of colonNOMS HealthcareStart: 24-19-6931Hmqxfnaxm vaccinationInfluenza Vaccine (#1)[facility] HealthcareStart: 64-66-8991Mvdjgawtv for malignant neoplasm of breastMammogramNOMS Healthcare Start: 61-42-5019Mwmeapxtz for malignant neoplasm of cervixNOMS HealthcareStart: 69-72-2924Mtipnwrzp for malignant neoplasm of cervixPap SmearNOMS Healthcare Start: 74-77-8527Fywlcxvsy for malignant neoplasm of colonN[facility]S Healthcare Payers DatePayer CategoryPayerPolicy [id number] [facility]ert [facility] HospitalBCBS [id number] BCBS [id number] 2021-Present [phone] [id number] [place], [place] [id number] [id number] [id number] [id number] Social History DateTypeDetailFacilityStart: 12-60-1937Vkucxhi smoking status NHISNever smoked tobaccoSAN JUAN HOSPITAL HealthcareStart: 76-63-1401Iiqzzpf use and exposureSmokeless tobacco non-userSAN JUAN HOSPITAL HealthcareStart: 10-12-2023 End: 02-06-8419Qngvacr of Social functionNOVA HealthcareStart: 10-12-2023 End: 27-44-0830Bqzbpw connection and isolation panelNOVA HealthcareHow often do you attend episcopal or yazdanism services?Patient declinedNOVA HealthcareDo you belong to any clubs or organizations such as episcopal groups, unions, fraternal or athletic groups, or school groups?YesNOMS HealthcareAre you now , , , , never or living with a partner?MarriedSAN JUAN HOSPITAL HealthcareDo you feel stress - tense, restless, nervous, or anxious, or unable to sleep at night because yourmind is troubled all the time - these days [OSQ] Not at allSt. Louis VA Medical CenterStart: 60-45-2006Ssc assigned at birthNot on [facility] History of Present illness Narrative 11-14-2024 Note Date & YmefVjsrZbqozgiw74-96-2500 History of Present illness Narrative* Fahad Olivier MD - 11/14/2024 3:31 PM EDTAssociated Problem(s): Primary osteoarthritis of both hands Pain and stiffness stable and continue mobic. * Fahad Olivier MD - 11/14/2024 3:31 PM EDTAssociated Problem(s): GERD without esophagitis Symptoms worse and try protonix. * Fahad Olivier MD - 11/14/2024 3:31 PM EDTAssociated Problem(s): Essential hypertension, benign BP controlled and monitor PRN. * Fahad Olivier MD - 11/14/2024 3:31 PM EDTAssociated Problem(s): Allergic rhinitis due to pollen Symptoms controlled with medication and continue. * Fahad Olivier MD - 11/14/2024 3:00 PM EDT Images from the original note were not included. Subjective Patient ID: Lyric Terrell is a 64 y.o. female who presents for Follow-up (6m). Follow up HTN, OA hands, GERD, and allergies. Not checking BP away from office and normal today. Taking medication daily and tolerating without side effects. Reports BP typically higher in office. OAhands stable. Stiff and sore in am and improved once up and moving. Increased pain with activity. 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 Allergies controlled with medication. No congestion or rhinorrhea. No COWAN or sinus pressure. Ears not plugged or popping. GERD recently worse. Frequent epigastric pain and burning. Frequent symptoms after eating. Taking nexium but not helping. Review of Systems Respiratory: Negative for cough, shortness of breath and wheezing. Cardiovascular: Negative for chest pain and palpitations. Gastrointestinal: Negative for abdominal pain, diarrhea, nausea and vomiting. Genitourinary: Negative for dysuria. Objective Physical Exam Constitutional: General: She is not in acute distress. Appearance: Normal appearance. HENT: Head: Normocephalic. Right Ear: Tympanic membrane normal. Left Ear: Tympanic membrane normal. Eyes: Extraocular Movements: Extraocular movements intact. Pupils: Pupils are equal, round, and reactive to light. Cardiovascular: Rate and Rhythm: Normal rate and regular rhythm. Heart sounds: No murmur heard. No friction rub. No gallop. Pulmonary: Effort: Pulmonary effort is normal. Breath sounds: Normal breath sounds. No wheezing, rhonchi or rales. Abdominal: General: Bowel sounds are normal. There is no distension. Palpations: Abdomen is soft. Tenderness: There is no abdominal tenderness. There is no guarding or rebound. Musculoskeletal: Cervical back: Neck supple. Right lower leg: No edema. Left lower leg: No edema. Neurological: Mental Status: She is alert. Assessment/Plan Problem List Items Addressed This Visit Essential hypertension, benign - Primary BP controlled and monitor PRN. Primary osteoarthritis of both hands Pain and stiffness stable and continue mobic. Allergic rhinitis due to pollen Symptoms controlled with medication and continue. GERD without esophagitis Symptoms worse and try protonix. Relevant Medications pantoprazole (Protonix) 40 MG EC tablet documented in this encounterNOMS Healthcare History of Present illness Narrative 05-16-2024 Note Date & CosoLnvvCmvasyaa14-99-9534 History of Present illness Narrative* Fahad Olivier MD - 05/16/2024 9:49 AM ESTAssociated Problem(s): Class 2 severe obesity due to excess calories with serious comorbidity and body mass index (BMI) of 36.0 to 36.9 in adult ([facility]) Weight down 9 pounds in past year. * Fahad Olivier MD - 05/16/2024 9:49 AM ESTAssociated Problem(s): GERD without esophagitis Symptoms tolerable with nexium and continue. If worsens will need EGD and or UGI. * Fahad Olivier MD - 05/16/2024 9:49 AM ESTAssociated Problem(s): Essential hypertension, benign ([facility]) BP okay and monitor PRN. * Fahad Olivier MD - 05/16/2024 9:48 AM ESTAssociated Problem(s): Annual physical exam Reviewed labs. Due for cologuard and ordered. Discussed proper diet and regular aerobic exercise. Need aerobic exercise 5-6 days a week for 30 minutes at a time. Smaller portions and limit total calories. Tetanus every 10 years. Advised not to smoke. * Fahad Olivier MD - 05/16/2024 9:00 AM EST Images from the original note were not included. Subjective Patient ID: Lyric Terrell is a 63 y.o. female who presents for GERD and Annual Exam. Presents for annual PE. Patient feels well today. Weight down 9 pounds in the past year. Active at work but no specific exercise. Tries to watch diet and eat healthy. Increased fruits and vegetables.Smaller portions and limits snacking. Tries to limit total daily calories. Reviewed labs. Due for repeat cologuard. Checking BP PRN and typically controlled. BP normal today. Taking medication daily and tolerating without side effects. C/o GERD. Frequent epigastric pain and burning. Occasional reflux and worse if eat late or laying down. Using OTC nexium and helps. Review of Systems Respiratory: Negative for cough, shortness of breath and wheezing. Cardiovascular: Negative for chest pain and palpitations. Gastrointestinal: Negative for abdominal pain, diarrhea, nausea and vomiting. Genitourinary: Negative for dysuria. Objective Physical Exam Constitutional: General: She is not in acute distress. Appearance: Normal appearance. HENT: Head: Normocephalic. Right Ear: Tympanic membrane normal. Left Ear: Tympanic membrane normal. Eyes: Extraocular Movements: Extraocular movements intact. Pupils: Pupils are equal, round, and reactive to light. Cardiovascular: Rate and Rhythm: Normal rate and regular rhythm. Heart sounds: No murmur heard. No friction rub. No gallop. Pulmonary: Effort: Pulmonary effort is normal. Breath sounds: Normal breath sounds. No wheezing, rhonchi or rales. Abdominal: General: Bowel sounds are normal. There is no distension. Palpations: Abdomen is soft. Tenderness: There is no abdominal tenderness. There is no guarding or rebound. Musculoskeletal: General: No swelling or tenderness. Cervical back: Neck supple. Right lower leg: No edema. Left lower leg: No edema. Skin: Findings: No erythema or rash. Neurological: General: No focal deficit present. Mental Status: She is alert and oriented to person, place, and time. Cranial Nerves: No cranial nerve deficit. Motor: No weakness. Gait: Gait normal. Assessment/Plan Problem List Items Addressed This Visit Essential hypertension, benign (CMS/HCC) BP okay and monitor PRN. Annual physical exam - Primary Reviewed labs. Due for cologuard and ordered. Discussed proper diet and regular aerobic exercise. Need aerobic exercise 5-6 days a week for 30 minutes at a time. Smaller portions and limit total calories. Tetanus every 10 years. Advised not to smoke. Class 2 severe obesity due to excess calories with serious comorbidity and body mass index (BMI) of36.0 to 36.9 in adult ([facility]) Weight down 9 pounds in past year. GERD without esophagitis Symptoms tolerable with nexium and continue. If worsens will need EGD and or UGI. documented in this encounterS[facility] Evaluation note Note Date & TypeNoteFacilityEvaluation note* Diagnosis Essential hypertension, benign (CMS/HCC)- Primary Essential hypertension, benign Primary osteoarthritis of both hands Seasonal allergic rhinitis due to pollen Vitamin D deficiency Breast cancer screening by mammogram Annual physical exam Routine general medical examination at a health care facility Annual physical exam- Primary Routine general medical examination at a health care facility Essential hypertension, benign (CMS/HCC) Essential hypertension, benign GERD without esophagitis Esophageal reflux Class 2 severe obesity due to excess calories with serious comorbidity and body mass index (BMI) of36.0 to 36.9 in adult ([facility]) Colon cancer screening Special screening for malignant neoplasms, colon documented in this encounter [facility] Evaluation note Note Date & TypeNoteFacilityEvaluation note* Diagnosis Essential hypertension, benign (CMS/HCC)- Primary Essential hypertension, benign Primary osteoarthritis of both hands Seasonal allergic rhinitis due to pollen Vitamin D deficiency Breast cancer screening by mammogram Annual physical exam Routine general medical examination at a health care facility Annual physical exam- Primary Routine general medical examination at a health care facility Essential hypertension, benign (CMS/HCC) Essential hypertension, benign GERD without esophagitis Esophageal reflux Class 2 severe obesity due to excess calories with serious comorbidity and body mass index (BMI) of36.0 to 36.9 in adult ([facility]) Colon cancer screening Special screening for malignant neoplasms, colon Chronic neck pain Cervicalgia documented in this encounter [facility] Evaluation note Note Date & TypeNoteFacilityEvaluation note* Diagnosis Essential hypertension, benign- Primary Essential hypertension, benign Primary osteoarthritis of both hands Seasonal allergic rhinitis due to pollen Vitamin D deficiency Breast cancer screening by mammogram Annual physical exam Routine general medical examination at a health care facility Annual physical exam- Primary Routine general medical examination at a health care facility Essential hypertension, benign Essential hypertension, benign GERD without esophagitis Esophageal reflux Class 2 severe obesity due to excess calories with serious comorbidity and body mass index (BMI) of36.0 to 36.9 in adult ([facility]) Colon cancer screening Special screening for malignant neoplasms, colon Essential hypertension, benign Essential hypertension, benign documented in this encounter [facility] Evaluation note Note Date & TypeNoteFacilityEvaluation note* Diagnosis Essential hypertension, benign- Primary Essential hypertension, benign Primary osteoarthritis of both hands Seasonal allergic rhinitis due to pollen Vitamin D deficiency Breast cancer screening by mammogram Annual physical exam Routine general medical examination at a health care facility Annual physical exam- Primary Routine general medical examination at a health care facility Essential hypertension, benign Essential hypertension, benign GERD without esophagitis Esophageal reflux Class 2 severe obesity due to excess calories with serious comorbidity and body mass index (BMI) of36.0 to 36.9 in adult ([facility]) Colon cancer screening Special screening for malignant neoplasms, colon Essential hypertension, benign- Primary Essential hypertension, benign Primary osteoarthritis of both hands GERD without esophagitis Esophageal reflux Seasonal allergic rhinitis due to pollen documented in this encounter [facility] Summary Purpose Family History No Family History Records FoundNo Family History Records Found Advance Directives No Advanced Directives Records FoundNo Advanced Directives Records Found Additional Source Comments INFORMATION SOURCE (unrecogn ized section and content) DATE CREATED AUTHOR 03/29/2022 [facility] DATE CREATED AUTHOR AUTHOR'S ORGANIZ ATION 11/18/2024 [facility] EPIC Care Teams (unrecognized sec tion and content) Team MemberRelationshipSpecialtyStart DateEnd Date Fahad Olivier MD [address] [place] [address] PCP - GeneralFamily Medicine10/19/23 Fahad Olivier MD [address] [place] [address] PCP - [employer]11/08/23Team MemberRelationshipSpecialtyStart DateEnd Date Fahad Olivier MD [address] [place] [address] PCP - GeneralFamily Medicine10/19/23 Fahad Olivier MD [address] [place] [address] PCP - [employer]11/08/23Team MemberRelationshipSpecialtyStart DateEnd Date Fahad Olivier MD [address] [place] [address] PCP - GeneralFamily Medicine10/19/23 Fahad Olivier MD [address] [place] [address] PCP - [employer]11/08/23Team MemberRelationshipSpecialtyStart DateEnd Date Fahad Olivier MD [address] [place] [address] PCP - GeneralFamily Medicine10/19/23Team MemberRelationshipSpecialtyStart DateEnd Date Fahad Olivier MD [address] [place] [address] PCP - GeneralFamily Medicine10/19/23Team MemberRelationshipSpecialtyStart DateEnd Date Fahad Olivier MD [address] [place] [address] PCP - GeneralFamily Medicine10/19/23 Reason for Visit (unrecogniz ed section and content) ReasonCommentsGERDAnnual ExamReasonOnset DateCommentsMed Ezqhhr3108/28/2024Reason Onset DateCommentsMed Ubujif0310/30/2024ReasonCommentsFollow-up6m FOR RECORDS PERTAINING TO PATIENTS WHO ARE OR HAVE BEEN ENROLLED IN A CHEMICAL DEPENDENCY/SUBSTANCEABUSE PROGRAM, SOME INFORMATION MAY BE OMITTED. This clinical summary was aggregated from multiple sources. Caution should be exercised in using it in the provision of clinical care. This summary normalizes information from multiple sources, and as a consequence, information in this document may materially change the coding, format and clinical context of patient data. In addition, data may be omitted in some cases. CLINICAL DECISIONS SHOULD BE BASED ON THE PRIMARY CLINICAL RECORDS. [employer] [facility]. provides no warranty or guarantee of the accuracy or completeness of information in this document.
== END 2025-02-28 13:11 | disposition home or self-care (01) ==
LOC: MAMMO 13:11
PROVIDERS: PCP Family Medicine; Visit Provider Internal Medicine
DX: Z12.31 Encounter for screening mammogram for malignant neoplasm of breast (principal); Z78.0 Asymptomatic menopausal state; M85.88 Other specified disorders of bone density and structure, other site
CPT/HCPCS: 77063; 77067; 77080